=== PATIENT | female | born 1950 | race Asian ===

== ENCOUNTER 2018-07-27 12:57 | Inpatient (IN) | payer OTHER ==
[~2018-07-27] VITALS: Ht 157.5 cm; Wt 59.5 kg
[2018-07-27 14:28] LABS: microscopic required? NO
[2018-07-27 14:40] LABS: urine erythrocyte NEGATIVE (NEGATIVE)
[2018-07-27 15:17] LABS: PLATELET COUNT 73 x10^3mcL (130-400); RED CELL DISTRIBUTION WIDTH 14.6 % (11.5-14.5)
[2018-07-27 15:18] LABS: CALCIUM 9.1 mg/dL (8.5-10.1); CARBON DIOXIDE 27.6 mmol/L (21-32); CHLORIDE SERUM 108 mmol/L (98-107); CREATININE SERUM 0.6 mg/dL (0.6-1.0); GFR1 > 60 mL/min; GLUCOSE SERUM 104 mg/dL (74-106); POTASSIUM SERUM 3.8 mmol/L (3.5-5.1); SODIUM SERUM 144 mmol/L (136-145)
[2018-07-27 15:22] LABS: ALBUMIN 3.6 g/dL (3.4-5.0); ALKALINE PHOSPHATASE 87 U/L (46-116); ALT/SGPT 29 U/L (14-59); AST/SGOT 32 U/L (15-37); BILIRUBIN TOTAL 0.63 mg/dL (0.20-1.00); CHOLESTEROL 134 mg/dL (<200); CHOLESTEROL/HDL RATIO 3.8; HDL CHOLESTEROL 35 mg/dL (40-60); LIPASE 211 IU/L (73-393); TOTAL PROTEIN, SERUM 7.6 g/dL (6.4-8.2); TRIGLYCERIDES 76 mg/dL (<150)
[2018-07-27 15:38] LABS: T3 TOTAL 1.49 ng/mL
[2018-07-27 15:41] LABS: BAND NEUTROPHIL 5 % (0-10); MONOCYTE 8 % (0-7); SEGMENTED NEUTROPHILS 48 % (37-75); rbc morphology (normal/abnorm) NORMAL (NORMAL)
[2018-07-27 15:42] LABS: PLATELET MORPHOLOGY PLATELETS DECREASED
[2018-07-27 15:58] LABS: FREE T4 1.03 ng/dL (0.76-1.46); FREE THYROXINE INDEX 2.9 ug/dL (1.4-4.5); T4(THYROXINE) 10.1 ug/dL (4.7-13.3)
[2018-07-27 17:05] VITALS: BP 159/82
[2018-07-27 17:08] VITALS: Ht 157.5 cm; Wt 59.5 kg
[2018-07-27 20:40] VITALS: BP 114/64
[2018-07-28 05:13] VITALS: BP 117/75
[2018-07-28 05:16] VITALS: BP 108/57
[2018-07-28 06:16] LABS: BASOPHIL % 0.6 % (0-2)
[2018-07-28 06:35] LABS: CALCIUM 8.3 mg/dL (8.5-10.1); CARBON DIOXIDE 25.6 mmol/L (21-32); CHLORIDE SERUM 110 mmol/L (98-107); CREATININE SERUM 0.6 mg/dL (0.6-1.0); GFR1 > 60 mL/min; GLUCOSE SERUM 90 mg/dL (74-106); MAGNESIUM 2.1 mg/dL (1.8-2.4); PHOSPHOROUS 4.1 mg/dL (2.5-4.9); POTASSIUM SERUM 3.7 mmol/L (3.5-5.1); SODIUM SERUM 143 mmol/L (136-145)
[2018-07-28 07:10] LABS: PLATELET COUNT 76 x10^3mcL (130-400); RED CELL DISTRIBUTION WIDTH 14.7 % (11.5-14.5)
[2018-07-28 08:56] VITALS: BP 105/72
[2018-07-28 13:37] VITALS: BP 122/78
== END 2018-07-28 18:25 | disposition home or self-care (01) ==
LOC: ED 12:57 → DU 15:37
PROVIDERS: Internal Medicine; Specialist
DX: K74.60 Unspecified cirrhosis of liver (principal); D61.818 Other pancytopenia; K86.89 Other specified diseases of pancreas; R16.1 Splenomegaly, not elsewhere classified; R91.8 Other nonspecific abnormal finding of lung field; M94.0 Chondrocostal junction syndrome [Tietze]; Z80.8 Family history of malignant neoplasm of other organs or systems
CPT/HCPCS: 83880; 84439; J1885; J7030; Q0092; Q9967